=== PATIENT | female | born 1960 | race Caucasian/White ===

== ENCOUNTER 2018-05-27 20:38 | Inpatient (IN) | payer MEDICAID, OTHER ==
[~2018-05-27] VITALS: Ht 162.6 cm; Wt 85.9 kg
[2018-05-27 21:55] LABS: INR 1.13 (0.9-1.15)
[2018-05-27 21:56] LABS: Albumin 1.6 g/dL (3.4-5.0); Calcium 7.8 mg/dL (8.5-10.1)
[2018-05-27 21:59] LABS: BUN/Creatinine Ratio 13.9
[2018-05-27] MEDS ORDERED: chlordiazePOXIDE HCL 25 MG CAP PO ONE (22:00)
[2018-05-27 22:21] LABS: Hemoglobin 11.7 g/dL (12.2-16.2); Red Cell Distribution Width 15.5 % (11.8-14.3); White Blood Cell 24.3 10^3/uL (4.4-10.8)
[2018-05-27 22:22] LABS: Mean Corpuscular Hemoglobin 40.4 pg (28.0-32.0); Mean Corpuscular Hgb Conc. 34.4 g/dL (32.0-36.0); Mean Corpuscular Volume 117.5 fL (80.0-100.0); Platelet Count (auto) 191 10^3/uL (140-450); Red Blood Cells 2.89 10^6/uL (4.0-5.20)
[2018-05-27 22:25] LABS: Band Neutrophils % (manual) 0; Basophils % (manual) 0 (0.0-2.0); Blast Cells 0; Eosinophils % (manual) 0 (0-7); Metamyelocytes % 0; Myelocytes % 0; Promyelocytes % 0; Reactive Lymphocytes 0
[2018-05-27 22:29] LABS: Bilirubin, Total 26.5 mg/dL (0.2-1.0); Total Protein 4.7 g/dL (6.4-8.2)
[2018-05-27 22:39] LABS: Lymphocytes % (manual) 6 (10.0-50.0); Monocytes % (manual) 2 (0-12)
[2018-05-27 22:47] LABS: Potassium 2.6 mmol/L (3.5-5.1)
[2018-05-27] MEDS ORDERED: ONDANSETRON HCL 4 MG/2 ML VIAL IV ONE (23:00)
[2018-05-27 23:30] LABS: Blood Alcohol < 3.0 mg/dL (0-5); Lipase 335 U/L (73-393)
[2018-05-28] MEDS ORDERED: POTASSIUM CHL 20 Meq TABLET PO ONE
[2018-05-28] MEDS: POTASSIUM CHL 20MEQ/100ML 100 ML IV SCH ×2 (00:45→03:37)
[2018-05-28] MEDS ORDERED: chlordiazePOXIDE HCL 25 MG CAP PO PRN (02:45)
[2018-05-28] MEDS ORDERED: NITROGLYCERIN 0.4 MG SL TAB SL PRN (03:00)
[2018-05-28] MEDS ORDERED: ONDANSETRON HCL 4 MG/2 ML VIAL IV PRN (03:00)
[2018-05-28] MEDS ORDERED: LACTULOSE 20Gm/30ML SOLN PO ONE (03:00)
[2018-05-28] MEDS ORDERED: MORPHINE SULF INJ 2 MG/ML SYRINGE 1ML IV PRN (03:00)
[2018-05-28] MEDS: PIPERACILLIN-TAZOB 2.25GM 50 ML IV SCH ×4 (05:57→23:07)
[2018-05-28] MEDS: LACTULOSE 20Gm/30ML SOLN PO SCH ×5 (05:57→22:30)
[2018-05-28 09:00] VITALS: BP 86/40
[2018-05-28] MEDS ORDERED: POTA10TA51 PO (09:54)
[2018-05-28] MEDS ORDERED: MELA3TAB27 PO (09:54)
[2018-05-28] MEDS: SPIRONOLACTONE 25 MG TAB PO SCH (10:22)
[2018-05-28 11:56] LABS: Alcohol, Urine < 3.0 mg/dL (0-5); Amphetamine Screen, Urine NEGATIVE (NEGATIVE); Barbiturate Scree,Urine NEGATIVE (NEGATIVE); Benzodiazephine Screen, Urine NEGATIVE (NEGATIVE); Cannabinoid Screen, Urine NEGATIVE (NEGATIVE); Cocaine Screen, Urine NEGATIVE (NEGATIVE); Opiate Scree,Urine NEGATIVE (NEGATIVE); Phencyclidine Screen, Urine NEGATIVE (NEGATIVE)
[2018-05-28 11:57] LABS: Urine Bacteria FEW /hpf (None Seen); Urine Blood 2+ /uL (Negative); Urine Mucus FEW (None Seen); Urine Specific Gravity 1.015 (1.001-1.035); Urine WBC 209 /hpf (0 - 5); Urine WBC Clumps PRESENT /hpf (None Seen)
[2018-05-28 11:59] LABS: Protein, Urine 75.5 mg/dL (0.0-11.9)
[2018-05-28] MEDS: MULTIPLE VITAMIN 10 ML, MAGNESIUM SULF SDV 50% 8 MEQ, THIAMINE INJ 100 MG in SODIUM CHL... IV SCH (12:48)
[2018-05-28] MEDS: RIFAXIMIN 550 MG TAB PO SCH ×2 (12:52→22:30)
[2018-05-28 13:00] VITALS: BP 85/40
[2018-05-28 17:00] VITALS: BP 86/40
[2018-05-28] MEDS ORDERED: PANTOPRAZOLE 40 MG/10 ML VIAL IV ONE (17:45)
[2018-05-28] MEDS ORDERED: PPN PER PHARMACY 0 ML IV SCH (18:00)
[2018-05-28] MEDS ORDERED: AMINO ACID INFUSION IN D10W 1,000 ML IV ONE (20:00)
[2018-05-28 22:00] VITALS: BP 98/48
[2018-05-28] MEDS: metroNIDAZOLE 500MG/100ML 100 ML IV SCH (22:05)
[2018-05-28] MEDS: ACCU-CHEK COMFORT CURVE STRIP VI SCH (23:59)
[2018-05-29] VITALS (7 sets, daily range): BP systolic 75–107; BP diastolic 40–58
[2018-05-29] MEDS ORDERED: DEXTROSE (50%) 50ML SYRG IV SCH
[2018-05-29] MEDS: LACTULOSE 20Gm/30ML SOLN PO SCH ×6 (01:55→22:29)
[2018-05-29] MEDS: metroNIDAZOLE 500MG/100ML 100 ML IV SCH ×3 (05:40→21:21)
[2018-05-29] MEDS: InsuLIN REG 1unit/0.01ml Soln (100units/ml) SC SCH ×4 (06:00→18:00)
[2018-05-29 06:05] LABS: Hemoglobin 10.3 g/dL (12.2-16.2); Platelet Count (auto) 171 10^3/uL (140-450)
[2018-05-29 06:07] LABS: Hematocrit 29.1 % (36.0-46.0); Mean Corpuscular Hemoglobin 41.4 pg (28.0-32.0); Mean Corpuscular Hgb Conc. 35.2 g/dL (32.0-36.0); Mean Corpuscular Volume 117.4 fL (80.0-100.0); Red Blood Cells 2.48 10^6/uL (4.0-5.20); Red Cell Distribution Width 15.6 % (11.8-14.3); White Blood Cell 19.3 10^3/uL (4.4-10.8)
[2018-05-29 06:11] LABS: Basophils % (manual) 0 (0.0-2.0); Blast Cells 0; Eosinophils % (manual) 0 (0-7); Metamyelocytes % 0; Myelocytes % 0; Promyelocytes % 0; Reactive Lymphocytes 0
[2018-05-29] MEDS: ACCU-CHEK COMFORT CURVE STRIP VI SCH ×3 (06:11→18:28)
[2018-05-29 06:14] LABS: Albumin 1.5 g/dL (3.4-5.0); Calcium 7.5 mg/dL (8.5-10.1); Magnesium 3.4 mg/dL (1.6-2.6)
[2018-05-29 06:29] LABS: BUN/Creatinine Ratio 14.1; Phosphorus 3.3 mg/dL (2.5-4.90); Potassium 2.7 mmol/L (3.5-5.1)
[2018-05-29 06:30] LABS: Pre Albumin 3.8 mg/dL (20.0-40.0); Total Protein 4.2 g/dL (6.4-8.2)
[2018-05-29 06:31] LABS: Bilirubin, Total 26.1 mg/dL (0.2-1.0)
[2018-05-29] MEDS: PIPERACILLIN-TAZOB 2.25GM 50 ML IV SCH ×3 (06:38→22:30)
[2018-05-29 07:48] LABS: Band Neutrophils % (manual) 2; Lymphocytes % (manual) 5 (10.0-50.0); Monocytes % (manual) 8 (0-12)
[2018-05-29] MEDS: POTASSIUM CHL 20MEQ/100ML 100 ML IV SCH ×2 (08:05→10:17)
[2018-05-29] MEDS: RIFAXIMIN 550 MG TAB PO SCH ×2 (10:17→22:00)
[2018-05-29] MEDS: PANTOPRAZOLE 40 MG/10 ML VIAL IV SCH (10:17)
[2018-05-29] MEDS: SPIRONOLACTONE 25 MG TAB PO SCH (10:17)
[2018-05-29] MEDS: MULTIPLE VITAMIN 10 ML, MAGNESIUM SULF SDV 50% 8 MEQ, THIAMINE INJ 100 MG in SODIUM CHL... IV SCH (12:33)
[2018-05-29] MEDS ORDERED: LACTATED RINGER'S 1,000 ML IV ONE ×2 (13:15)
[2018-05-29] MEDS ORDERED: POTASSIUM CHL 20MEQ/100ML 100 ML IV ONE (18:00)
[2018-05-29 18:37] LABS: Urine Bacteria FEW /hpf (None Seen); Urine Blood 2+ /uL (Negative); Urine Budding Yeast OCCASIONAL /hpf (None Seen); Urine Mucus FEW (None Seen); Urine Specific Gravity 1.015 (1.001-1.035); Urine WBC 19 /hpf (0 - 5)
[2018-05-29 18:55] LABS: Creatinine, Urine 83 mg/dL (30.0-125.0); Sodium Urine 31 mmol/L (40-220)
[2018-05-29] MEDS ORDERED: PPN PER PHARMACY IV NR ×6 (20:00)
[2018-05-30] VITALS (7 sets, daily range): BP systolic 86–105; BP diastolic 46–67
[2018-05-30] MEDS ORDERED: POTASSIUM CHL 10% (20 MEQ/15ML) 15ml ORAL SOLN PO ONE (00:45)
[2018-05-30] MEDS: LACTULOSE 20Gm/30ML SOLN PO SCH ×6 (02:03→22:00)
[2018-05-30] MEDS: metroNIDAZOLE 500MG/100ML 100 ML IV SCH (05:26)
[2018-05-30 05:38] LABS: Hematocrit 29.2 % (36.0-46.0)
[2018-05-30 05:40] LABS: Hemoglobin 10.5 g/dL (12.2-16.2); Mean Corpuscular Hemoglobin 42.2 pg (28.0-32.0); Mean Corpuscular Hgb Conc. 35.9 g/dL (32.0-36.0); Mean Corpuscular Volume 117.7 fL (80.0-100.0); Platelet Count (auto) 163 10^3/uL (140-450); Red Blood Cells 2.48 10^6/uL (4.0-5.20); White Blood Cell 17.7 10^3/uL (4.4-10.8)
[2018-05-30 05:48] LABS: Potassium 3.6 mmol/L (3.5-5.1)
[2018-05-30 05:53] LABS: Albumin 1.4 g/dL (3.4-5.0); Calcium 7.5 mg/dL (8.5-10.1); Magnesium 3.2 mg/dL (1.6-2.6)
[2018-05-30 05:56] LABS: BUN/Creatinine Ratio 14.2; Phosphorus 2.1 mg/dL (2.5-4.90)
[2018-05-30] MEDS: InsuLIN REG 1unit/0.01ml Soln (100units/ml) SC SCH ×5 (06:00→23:33)
[2018-05-30 06:07] LABS: Bilirubin, Total 24.8 mg/dL (0.2-1.0)
[2018-05-30 06:10] LABS: Total Protein 4.3 g/dL (6.4-8.2)
[2018-05-30 06:12] LABS: Basophils % (manual) 0 (0.0-2.0); Blast Cells 0; Eosinophils % (manual) 0 (0-7); Metamyelocytes % 0; Myelocytes % 0; Promyelocytes % 0; Reactive Lymphocytes 0
[2018-05-30] MEDS: PIPERACILLIN-TAZOB 2.25GM 50 ML IV SCH ×3 (06:19→22:00)
[2018-05-30] MEDS: ACCU-CHEK COMFORT CURVE STRIP VI SCH ×5 (06:19→23:33)
[2018-05-30 06:40] LABS: Bilirubin, Direct 23.4 mg/dL (0-0.2)
[2018-05-30 07:10] LABS: Lymphocytes % (manual) 4 (10.0-50.0); Monocytes % (manual) 5 (0-12)
[2018-05-30 07:13] LABS: Band Neutrophils % (manual) 3
[2018-05-30 09:46] LABS: Hepatitis B Surface Antibody Negative
[2018-05-30] MEDS: PANTOPRAZOLE 40 MG/10 ML VIAL IV SCH (10:02)
[2018-05-30] MEDS: SPIRONOLACTONE 25 MG TAB PO SCH (10:02)
[2018-05-30] MEDS: RIFAXIMIN 550 MG TAB PO SCH ×2 (10:02→22:00)
[2018-05-30 10:24] LABS: Hepatitis A Total Antibody Negative
[2018-05-30] MEDS: ALBUMIN 25% 50 ML IV SCH ×2 (11:31→20:00)
[2018-05-30] MEDS ORDERED: OCTREOTIDE ACETATE 100 MCG in SODIUM CHL 0.9% 50 ML IV ONE (12:30)
[2018-05-30 12:52] LABS: Hepatitis B Core Total AB Negative
[2018-05-30 12:53] LABS: Hepatitis A Ab IgM Negative; Hepatitis B Core IgM Negative; Hepatitis B Surface Antigen Negative (Negative); Hepatitis C Antibody Negative (Negative)
[2018-05-30] MEDS: OCTREOTIDE ACETATE 500 MCG in SODIUM CHL 0.9% 99 ML IV SCH ×2 (14:39→22:30)
[2018-05-30] MEDS: PPN PER PHARMACY IV NR ×6 (20:00)
[2018-05-31] MEDS: LACTULOSE 20Gm/30ML SOLN PO SCH ×6 (01:56→21:20)
[2018-05-31] MEDS: ALBUMIN 25% 50 ML IV SCH (03:55)
[2018-05-31 04:41] VITALS: BP 94/59
[2018-05-31] MEDS: ACCU-CHEK COMFORT CURVE STRIP VI SCH ×3 (05:25→17:33)
[2018-05-31] MEDS: PIPERACILLIN-TAZOB 2.25GM 50 ML IV SCH ×3 (05:25→21:20)
[2018-05-31] MEDS: InsuLIN REG 1unit/0.01ml Soln (100units/ml) SC SCH ×3 (05:25→17:53)
[2018-05-31 06:52] LABS: Eosinophils # (auto) 0.2 uL; Mean Corpuscular Hemoglobin 41.4 pg (28.0-32.0); Mean Corpuscular Hgb Conc. 34.8 g/dL (32.0-36.0)
[2018-05-31 06:54] LABS: Basophils # (auto) 0 uL; Basophils % (auto) 0.2 % (0.0-2.0); Eosinophils % (auto) 0.9 % (0.0-7.0); Hemoglobin 11.1 g/dL (12.2-16.2); Lymphocytes # (auto) 3.2 uL; Lymphocytes % (auto) 17.3 % (10.0-50.0); Mean Corpuscular Volume 118.9 fL (80.0-100.0); Monocytes # (auto) 0.9 uL; Monocytes % (auto) 4.9 % (0.0-12.0); Neutrophils # (auto) 14.1 uL; Neutrophils % (auto) 76.7 % (37.0-80.0); Platelet Count (auto) 161 10^3/uL (140-450); Red Blood Cells 2.69 10^6/uL (4.0-5.20); White Blood Cell 18.4 10^3/uL (4.4-10.8)
[2018-05-31 07:31] LABS: Albumin 1.6 g/dL (3.4-5.0); Calcium 7.6 mg/dL (8.5-10.1); Magnesium 3.3 mg/dL (1.6-2.6); Potassium 3.4 mmol/L (3.5-5.1)
[2018-05-31 07:44] LABS: BUN/Creatinine Ratio 14.5; Bilirubin, Total 27.2 mg/dL (0.2-1.0); Phosphorus 3.4 mg/dL (2.5-4.90); Pre Albumin 5.1 mg/dL (20.0-40.0); Total Protein 4.5 g/dL (6.4-8.2)
[2018-05-31 09:00] VITALS: BP 89/46
[2018-05-31] MEDS: RIFAXIMIN 550 MG TAB PO SCH ×2 (10:37→21:20)
[2018-05-31] MEDS: PANTOPRAZOLE 40 MG/10 ML VIAL IV SCH (10:38)
[2018-05-31] MEDS: SPIRONOLACTONE 25 MG TAB PO SCH (10:38)
[2018-05-31] MEDS: PPN PER PHARMACY IV NR ×12 (10:40→20:00)
[2018-05-31] MEDS: OCTREOTIDE ACETATE 500 MCG in SODIUM CHL 0.9% 99 ML IV SCH ×3 (11:25→20:39)
[2018-05-31 13:00] VITALS: BP 101/58
[2018-05-31] MEDS ORDERED: NICOTINE 21MG/24 HR TOPICAL PATCH TD ONE (15:00)
[2018-05-31 16:58] VITALS: BP 98/56
[2018-05-31 18:51] LABS: Urine Bacteria FEW /hpf (None Seen); Urine Blood 1+ /uL (Negative); Urine Budding Yeast MODERATE /hpf (None Seen); Urine Specific Gravity 1.017 (1.001-1.035); Urine WBC 10 /hpf (0 - 5)
[2018-05-31 18:55] LABS: Protein, Urine 54.2 mg/dL (0.0-11.9)
[2018-05-31] MEDS ORDERED: MORPHINE SULF INJ 2 MG/ML SYRINGE 1ML IV ONE (21:00)
[2018-05-31 22:00] VITALS: BP 107/63
[2018-06-01] MEDS: ACCU-CHEK COMFORT CURVE STRIP VI SCH ×5 (00:21→23:29)
[2018-06-01] MEDS: LACTULOSE 20Gm/30ML SOLN PO SCH ×9 (01:41→23:28)
[2018-06-01 04:56] VITALS: BP 90/57
[2018-06-01] MEDS: PIPERACILLIN-TAZOB 2.25GM 50 ML IV SCH ×3 (05:55→22:57)
[2018-06-01] MEDS: InsuLIN REG 1unit/0.01ml Soln (100units/ml) SC SCH ×5 (05:56→23:29)
[2018-06-01 06:40] LABS: Hematocrit 35.1 % (36.0-46.0); Mean Corpuscular Hgb Conc. 34.2 g/dL (32.0-36.0); Mean Corpuscular Volume 119.8 fL (80.0-100.0); Platelet Count (auto) 149 10^3/uL (140-450); Red Blood Cells 2.93 10^6/uL (4.0-5.20); Red Cell Distribution Width 15.5 % (11.8-14.3); White Blood Cell 22.7 10^3/uL (4.4-10.8)
[2018-06-01 06:56] LABS: Band Neutrophils % (manual) 0; Basophils % (manual) 0 (0.0-2.0); Blast Cells 0; Eosinophils % (manual) 0 (0-7); Metamyelocytes % 0; Myelocytes % 0; Promyelocytes % 0; Reactive Lymphocytes 0
[2018-06-01 07:06] LABS: Albumin 1.6 g/dL (3.4-5.0); BUN/Creatinine Ratio 16.5; Calcium 7.6 mg/dL (8.5-10.1); Magnesium 2.9 mg/dL (1.6-2.6); Potassium 3.5 mmol/L (3.5-5.1)
[2018-06-01 07:19] LABS: Bilirubin, Total 28.5 mg/dL (0.2-1.0); Phosphorus 4.5 mg/dL (2.5-4.90)
[2018-06-01 07:23] LABS: Total Protein 4.6 g/dL (6.4-8.2)
[2018-06-01 08:29] VITALS: BP 107/58
[2018-06-01 08:43] LABS: Lymphocytes % (manual) 2 (10.0-50.0); Monocytes % (manual) 7 (0-12)
[2018-06-01] MEDS: OCTREOTIDE ACETATE 500 MCG in SODIUM CHL 0.9% 99 ML IV SCH ×2 (12:22→23:49)
[2018-06-01] MEDS: PPN PER PHARMACY IV NR ×6 (12:23)
[2018-06-01] MEDS: NICOTINE 21MG/24 HR TOPICAL PATCH TD SCH (12:24)
[2018-06-01] MEDS: RIFAXIMIN 550 MG TAB PO SCH ×2 (12:25→22:58)
[2018-06-01] MEDS: SPIRONOLACTONE 25 MG TAB PO SCH (12:25)
[2018-06-01] MEDS: PANTOPRAZOLE 40 MG/10 ML VIAL IV SCH (12:25)
[2018-06-01 12:35] VITALS: BP 109/57
[2018-06-01 17:19] VITALS: BP 90/47
[2018-06-01] MEDS ORDERED: PPN PER PHARMACY IV NR ×5 (20:00)
[2018-06-01 22:00] VITALS: BP 111/57
[2018-06-02] MEDS: LACTULOSE 20Gm/30ML SOLN PO SCH ×8 (02:00→14:00)
[2018-06-02 05:22] VITALS: BP 106/59
[2018-06-02] MEDS: PIPERACILLIN-TAZOB 2.25GM 50 ML IV SCH ×2 (05:26→13:46)
[2018-06-02] MEDS: ACCU-CHEK COMFORT CURVE STRIP VI SCH ×2 (05:37→11:57)
[2018-06-02] MEDS: InsuLIN REG 1unit/0.01ml Soln (100units/ml) SC SCH ×2 (05:37→11:57)
[2018-06-02 06:29] LABS: Potassium 3.6 mmol/L (3.5-5.1)
[2018-06-02 06:47] LABS: Albumin 1.4 g/dL (3.4-5.0); BUN/Creatinine Ratio 18.5; Bilirubin, Total 24.2 mg/dL (0.2-1.0); Calcium 6.9 mg/dL (8.5-10.1); Magnesium 2.8 mg/dL (1.6-2.6); Phosphorus 4.6 mg/dL (2.5-4.90); Total Protein 4.3 g/dL (6.4-8.2)
[2018-06-02 09:00] VITALS: BP 99/54
[2018-06-02] MEDS: PANTOPRAZOLE 40 MG/10 ML VIAL IV SCH (11:03)
[2018-06-02] MEDS: OCTREOTIDE ACETATE 500 MCG in SODIUM CHL 0.9% 99 ML IV SCH (11:05)
[2018-06-02] MEDS: SPIRONOLACTONE 25 MG TAB PO SCH (11:05)
[2018-06-02] MEDS: NICOTINE 21MG/24 HR TOPICAL PATCH TD SCH (11:05)
[2018-06-02] MEDS: RIFAXIMIN 550 MG TAB PO SCH (11:05)
[2018-06-02 13:00] VITALS: BP 103/61
[2018-06-02 17:00] VITALS: BP 82/51
[2018-06-02] MEDS ORDERED: PPN PER PHARMACY IV NR ×6 (20:00)
== END 2018-06-02 18:30 | disposition hospice, home (50) | DRG 279 ==
LOC: ER 20:38 → TELE 05-28 02:53 → TELE-WESTW 05-28 07:46
PROVIDERS: ADMIT Nurse Practitioner; ATTEND Internal Medicine
DX: K72.90 Hepatic failure, unspecified without coma (principal); N17.0 Acute kidney failure with tubular necrosis; E43 Unspecified severe protein-calorie malnutrition; K76.7 Hepatorenal syndrome; K76.6 Portal hypertension; N18.5 Chronic kidney disease, stage 5; K75.81 Nonalcoholic steatohepatitis (NASH); E66.01 Morbid (severe) obesity due to excess calories; K70.31 Alcoholic cirrhosis of liver with ascites; E87.6 Hypokalemia; F10.10 Alcohol abuse, uncomplicated; K52.9 Noninfective gastroenteritis and colitis, unspecified; K57.30 Diverticulosis of large intestine without perforation or abscess without bleeding; Z66 Do not resuscitate; Z51.5 Encounter for palliative care; Z91.19 Patient's noncompliance with other medical treatment and regimen; Z68.32 Body mass index [BMI] 32.0-32.9, adult
CPT/HCPCS: 36415; 36600; 51702; 71045; 74176; 76700; 76705; 80053; 80074; 80076; 80307; 80320; 81001; 82040; 82140; 82550; 82570; 82805; 82962; 83036; 83605; 83690; 83735; 84100; 84132; 84156; 84300; 84478; 85007; 85025; 85027; 85610; 85730; 86704; 86706; 86708; 86803; 87040; 87086; 87340; 96365; 96366; 96375; A6257; C9113; G0378; J1815; J2405; J2543; J3480; J3490